=== PATIENT | female | born 1960 | race Caucasian/White ===

== ENCOUNTER 2017-02-19 22:24 | Inpatient (IN) | payer BC, OTHER ==
[2017-02-19 23:20] LABS: Urine Bilirubin Negative (NEGATIVE); Urine Blood 50 /ul (NEGATIVE); Urine Ketone 15 mg/dL (NEGATIVE); Urine Nitrite Negative (NEGATIVE); Urine Protein Negative (NEGATIVE); Urine Urobilinogen Normal (NORMAL); Urine pH 6.5 pH (5.0-7.0)
[2017-02-19 23:27] LABS: Urine Appearance Clear; Urine Bacteria 1+; Urine Color Yellow; Urine RBC 0-5 /hpf (0-5); Urine WBC 0-5 /hpf (0-5)
--- NOTE | 2017-02-20 01:29 | ERNOTE ---
Abdominal HPI - General Chief Complaint: Abdominal Pain Time Seen by Provider: 02/20/17 01:15 Source: patient, family Exam Limitations: clinical condition - Immun/Allergies/Home Medications Immunizatons: IMMUNIZATION HX Immunizations Up to Date Yes History of Influenza Vaccine No Hx Pneumococcal Vaccination Yes Allergies/Adverse Reactions: Allergies No Known Allergies Allergy (Unverified 02/19/17 22:39) Home Medications: HOME MEDICATIONS Amitriptyline HCl [Elavil] 10 mg PO HS 02/19/17 [Last Taken Unknown] Citalopram Hydrobromide [Celexa] 20 mg PO DAILY 02/19/17 [Last Taken Unknown] HYDROcodone/ACETAMINOPHEN [Hydrocodon-Acetaminophen 5-325] 1 each PO Q4H PRN [Last Taken Unknown] Levothyroxine Sodium [Synthroid] 100 mcg PO TUTH 02/19/17 [Last Taken Unknown] Levothyroxine Sodium [Synthroid] 112 mcg PO SUMOWEFRSA 02/19/17 [Last Taken Unknown] Lisinopril [Zestril] 10 mg PO DAILY 02/19/17 [Last Taken Unknown] Meloxicam [Mobic] 15 mg PO DAILY 02/19/17 [Last Taken Unknown] Zolpidem Tartrate 10 mg PO HS 02/19/17 [Last Taken Unknown] tiZANidine HCL [Tizanidine HCl] 4 mg PO BID 02/19/17 [Last Taken Unknown] - History of Present Illness Narrative: Pt sleeping upon my entrance to the room. Awakens to mild tactile and verbal stimuli. Pt keeps her eyes closed when talking to me during the exam. Timing: intermittent Quality: moderate, severe, aching Activities at Onset: none Modifying Factors - (Improves): Present: analgesics Modifying Factors - (Worsens): Present: movement Associated Symptoms: Present: diaphoresis, diarrhea-gross blood, fever/chills Prior Treatment: Present: other - Had similar episode [address] and colonoscopy were eventually done but not until weeks to months later. No diagnosis was given Review of Systems - Review of Systems Constitutional: Present: See HPI, fever, chills, diaphoresis EYE: Present: no symptoms reported ENT: Present: no symptoms reported Respiratory: Absent: shortness of breath Cardiology: Absent: chest pain Gastrointestinal/Abdominal: Present: See HPI, nausea, vomiting, diarrhea Genitourinary: Absent: frequency, pain Musculoskeletal: Present: back pain - chronic, muscle pain Skin: Present: no symptoms reported Neurological: Present: no symptoms reported Endocrine: Present: no symptoms reported Hematologic/Lymphatic: Present: no symptoms reported Psych: Present: no symptoms reported - Patient's Past Medical History Patient History - Medical: Depression, Hypothyroidism, Migraines Patient History - Cardiac/Respiratory: Asthma Patient History - Cancer: No Hx of Cancer Patient History - Surgical Procedures: Tubal Ligation, Other Patient History - Other: None - Social History Living Situations: home Abuse History: No History of abuse Psych History: Hx of Depression Smoking Status: Former smoker Have you smoked in the past 12 months: No Do you dip or chew tobacco: No Alcohol Use: none Drug Use: none - Immunizations Immunizations Up to Date: Yes Hx Pneumococcal Vaccination: Yes History of Influenza Vaccine: No Physical Exam - Physical Exam General Appearance: Present: wd/wn, mild distress, lethargic Respiratory: Present: no respiratory distress, no accessory muscle use, lungs clear Cardiovascular/Chest: Present: regular rate, rhythm, no murmur Gastrointestinal/Abdominal: Present: tenderness - epigastric and RLQ , abnormal bowel sounds - hypoactive. Absent: guarding, rebound Extremity Exam: Present: normal inspection, no edema Skin Exam: Present: normal color, warm/dry ED Progress - Results and Orders Patient's Lab Results:: I have reviewed the patient's lab results. Results and Orders: Laboratory Tests 02/19/17 02/20/17 02/20/17 23:10 01:24 01:24 WBC 17.2 H Hgb 12.9 Hct 37.5 Neutrophils % 83.4 H ESR Sodium 139 Potassium 4.2 Chloride 102 Carbon Dioxide 27.2 Anion Gap 14.0 H BUN 28 H Creatinine 1.05 Est GFR (Non-Af Amer) 58 L BUN/Creatinine Ratio 26.7 H Random Glucose 129 H Calcium 9.5 Total Bilirubin 0.5 AST 35 ALT 51 Alkaline Phosphatase 56 C-Reactive Prot, Quant 6.9 H Total Protein 7.0 Albumin 3.7 Amylase 67 Lipase 82 Urine Color Yellow Urine Appearance Clear Urine pH 6.5 Ur Specific [place] 1.010 Urine Protein Negative Urine Glucose (UA) Negative Urine Ketones 15 Urine Blood 50 H Urine Nitrate Negative Urine Bilirubin Negative Urine Urobilinogen Normal Ur Leukocyte Esterase 75 H Urine RBC 0-5 Urine WBC 0-5 Ur Epithelial Cells 0-5 Urine Bacteria 1+ H Urine Culture Comments Culture to follow 02/20/17 01:57 WBC Hgb Hct Neutrophils % ESR 14 Sodium Potassium Chloride Carbon Dioxide Anion Gap BUN Creatinine Est GFR (Non-Af Amer) BUN/Creatinine Ratio Random Glucose Calcium Total Bilirubin AST ALT Alkaline Phosphatase C-Reactive Prot, Quant Total Protein Albumin Amylase Lipase Urine Color Urine Appearance Urine pH Ur Specific [place] Urine Protein Urine Glucose (UA) Urine Ketones Urine Blood Urine Nitrate Urine Bilirubin Urine Urobilinogen Ur Leukocyte Esterase Urine RBC Urine WBC Ur Epithelial Cells Urine Bacteria Urine Culture Comments - Vital Signs Patient's Vital Signs:: I have reviewed the patient's vital signs. Vital Signs: Vital Signs 02/19/17 02/19/17 02/20/17 22:35 23:31 00:20 Temperature 38.8 C H Pulse Rate 89 90 98 Respiratory 20 18 18 Rate Blood Pressure 124/97 150/74 O2 Sat by Pulse 100 99 98 Oximetry 02/20/17 00:50 Temperature 38.4 C H Pulse Rate 92 Respiratory 18 Rate Blood Pressure 145/78 O2 Sat by Pulse 98 Oximetry - CT/Ultrasound CT/Ultrasound Narrative: Ct abd. pelvis with IV and oral contrast: focal wall thickening and surrounding inflammatory changes around the transverse and ascending colon. Consistent with colitis. consider endoscopic follow up to rule out neoplasm. No pneumoperitoneum or fluid collection to suggest perforation Otherwise normal to include appendix - Progress/Reassessment Chief Complaint: Abdominal Pain Progress:: Unchanged Progress Note-Subjective: 02/20/17 02:20 CBC results reviewed, WBC 17,000 discussed pain, IV and CT scan with patient. Orders written 02/20/17 05:[address] results with patient and recommended admission. Pt agrees with admission Spoke with Ally QUESADA hospitalist. She agrees with admit. Departure - Departure Clinical Impression: Colitis Disposition: [facility] Condition: Fair
[2017-02-20 01:39] LABS: Hematocrit 37.5 % (37.0-47.0); Hemoglobin 12.9 gm/dL (12.5-16.0); Mean Cell Volume 84.1 fl (78-100); Mean Corpuscular Hemoglobin 28.9 pg (27-31); Mean Corpuscular Hgb Conc 34.4 g/dl (32-36); Mean Platelet Volume 9.4 fl (6.0-9.5); Neutrophil # 14.3 K/mm3 (1.3-6.0); Neutrophil % 83.4 % (42-75.0); Platelet Count 239 K/mm3 (150-450); Red Blood Count 4.46 M/mm3 (4.2-5.4); White Blood Count 17.2 K/mm3 (4.0-10.5)
[2017-02-20] MEDS ORDERED: MORPHINE SULFATE 2 MG/ML DISP.SYRIN IV ONE ×2 (02:15→05:20)
[2017-02-20] MEDS ORDERED: ONDANSETRON HCL/PF 2 MG/ML VIAL IV ONE (02:15)
[2017-02-20] MEDS ORDERED: NORMAL SALINE 1,000 ML IV ONE ×3 (02:15→22:29)
[2017-02-20 02:17] LABS: Albumin * 3.7 gm/dl (3.4-5.0); BUN/Creatinine Ratio 26.7 (9.0-21.6); Bilirubin, Total 0.5 mg/dL (0.0-1.1); CRP 6.9 mg/dL (0.0-0.9); Ca. Corrected For Albumin 9.4 mg/dL (8.4-10.2); Calcium * 9.5 mg/dL (7.9-10.9); Carbon Dioxide 27.2 mmol/L (24-32.6); Potassium 4.2 mmol/L (3.4-4.6)
[2017-02-20] MEDS ORDERED: MORPHINE SULFATE 2 MG/ML DISP.SYRIN ONE ×2 (02:26→05:20)
[2017-02-20] MEDS ORDERED: ONDANSETRON HCL/PF 2 MG/ML VIAL ONE (02:26)
[2017-02-20] MEDS ORDERED: DIATRIZOATE MEGLU/DIATRIZO SOD 30 ML BTL PO ONE (02:48)
[2017-02-20] MEDS ORDERED: metroNIDAZOLE/SODIUM CHLORIDE 500 MG/100 ML BAG IV SCH ×2 (05:30→13:30)
--- NOTE | 2017-02-20 06:16 | HP ---
Chief Complaint - Chief Complaint Date of Service: 02/20/17 Time of Service: 06:06 Chief Complaint: " Abdominal Pain, Diarrhea, Nausea". Source of HPI- Pt; reliable, ER Provider report. History of Present Illness: Mrs. Joe is a 56-yr-old [place] pt of Dr. Bautista Johnston with a PMH of: Anemia, Depression, HTN, GERD, Hypothyroidism, Insomnia, Low Back Pain, &Raynaud's Syndrome. Pt states that yesterday morning at about 6am, she had a banana and shortly after that, she developed abdominal pain, and diarrhea that went on for about 2 hours. This was accompanied by headache and sweating. She took medication for her chronic back and neck pain and went to work. She reports that the abdominal pain and diarrhea continued during the day and got a lot worse in the evening. She finally chose to go to the ED at 10pm. She reports there were times when she 'noticed some blood in the stool.' She did not eat anything else for the rest of the day, but she had a few sips of liquids. She states that she had similar episode 10 yrs ago and was evaluated at the ED and asked to follow-up with a PCP. Her PCP obtained a CT of the abdomen and nothing acute was found. She also had a colonoscopy following that and it was normal. She states that ever since then, she had bouts of diarrhea and abdominal pain once or twice a month and it usually resolves on its own. She reports that her mother, brother and sister have been found to have Irritable Bowel Syndrome. At the ED, she was found to have WBC of 17,000 with a left shift and was febrile with a temp of 38.4. A CT of the abdomen showed inflammatory changes involving the transverse and ascending colon. - Patient's Past Medical History Patient History - Medical: Anemia, Chronic Pain, Depression, GERD, Hypothyroidism, Migraines Patient History - Cardiac/Respiratory: Asthma, Hypertension, Hyperlipidemia Patient History - Cancer: No Hx of Cancer Patient History - Surgical Procedures: Tubal Ligation, Other Patient History - Other: None - Family History Father Family History - Medical: Family History - Cardiac/Respiratory: CVA/Stroke Mother Family History - Medical: , Other - IBS - Social History Living Situations: home Abuse History: No History of abuse Psych History: Hx of Depression Smoking Status: Former smoker Have you smoked in the past 12 months: No Do you dip or chew tobacco: No Alcohol Use: none Drug Use: none - Immunizations Immunizations Up to Date: Yes Hx Pneumococcal Vaccination: Yes History of Influenza Vaccine: No Review Of Systems (GEN) - Review of Systems Generalized/Overall Review: Present: Malaise, Diaphoresis, Fatigue. Absent: Weakness, Chills, Fever EENTM: Absent: Eye Pain, Blurred Vision, Double Vision Respiratory: Absent: Cough, Shortness of Breath, Orthopnea Cardiac: Absent: Chest Pain, Edema, Palpitations Abdominal: Present: Nausea, Abdominal Pain, Diarrhea, Other - blood misex with stool. Absent: Vomiting, Hematemesis, Constipation, Melena Genitourinary: Absent: Burning, Itching, Frequency, Hesitancy Musculoskeletal: Absent: Joint Pain, Back Pain, Joint Swelling Neurological: Present: Headache, Depressed. Absent: Anxiety Skin: Absent: Dryness, Lesions, Lumps, Rash Endocrine: Absent: Intolerance to Cold, Intolerance to Heat, Increased Hunger Misc: All systems neg except as marked Immunizations: IMMUNIZATION HX Immunizations Up to Date Yes History of Influenza Vaccine No Hx Pneumococcal Vaccination Yes Allergies/Adverse Reactions: Allergies Allergy/AdvReac Type Severity Reaction Status Date / Time No Known Allergies Allergy Verified 02/20/17 07:02 Home Medications: HOME MEDICATIONS Amitriptyline HCl [Elavil] 10 mg PO HS 02/19/17 [Last Taken Unknown] Citalopram Hydrobromide [Celexa] 20 mg PO DAILY 02/19/17 [Last Taken Unknown] HYDROcodone/ACETAMINOPHEN [Hydrocodon-Acetaminophen 5-325] 1 each PO Q4H PRN [Last Taken 02/20/17 01:00] Levothyroxine Sodium [Synthroid] 100 mcg PO TUTH 02/19/17 [Last Taken Unknown] Levothyroxine Sodium [Synthroid] 112 mcg PO SUMOWEFRSA 02/19/17 [Last Taken Unknown] Lisinopril [Zestril] 10 mg PO DAILY 02/19/17 [Last Taken Unknown] Meloxicam [Mobic] 15 mg PO DAILY 02/19/17 [Last Taken Unknown] Zolpidem Tartrate 10 mg PO HS 02/19/17 [Last Taken Unknown] tiZANidine HCL [Tizanidine HCl] 4 mg PO BID 02/19/17 [Last Taken Unknown] Albuterol Sulfate [Proventil Hfa] 2 inh IH Q4H PRN 02/20/17 [Last Taken Unknown] Exam - Exam Vital Signs: Vital Signs - Last Taken Temp 37.3 C 02/20/17 05:40 Pulse 89 02/20/17 06:05 Resp 16 02/20/17 06:05 BP 148/76 02/20/17 06:05 Pulse Ox 96 02/20/17 06:05 Constitutional: Present: Alert, Oriented x3, Cooperative, Mild distress ENT Exam: Present: normal ENT inspection, hearing grossly normal, dry mucous membranes. Absent: nasal drainage, pharyngeal erythema Eye Exam: bilateral eye: normal inspection, PERRL Neck: Present: full range of motion, supple, normal inspection Back Exam: Present: normal inspection, no CVA tenderness Respiratory: Present: lungs clear, normal breath sounds, No wheezing Cardiovascular/Chest: Present: normal peripheral pulses, regular rate, rhythm, no chest tenderness, no edema, no murmur Abdomen: Present: Normal bowel sounds, tender - LLQ, guarding /Rectal: Present: Exam deferred Extremity: Present: normal range of motion, normal inspection, no pedal edema Skin Exam: Present: warm/dry, no cyanosis Lymphatic: Present: no adenopathy Neurologic: Present: no motor/sensory deficits, alert, normal mood/affect, oriented x 3 Appearance: Present: appropriate appearance, appropriate insight Eye contact: Present: cooperative, good eye contact, normal speech Thoughts: Present: normal thought pattern, no apparent hallucination Diagnostic Studies: Laboratory Results WBC 17.2 K/mm3 (4.0-10.5) H 02/20/17 01:24 RBC 4.46 M/mm3 (4.2-5.4) 02/20/17 01:24 Hgb 12.9 gm/dL (12.5-16.0) 02/20/17 01:24 Hct 37.5 % (37.0-47.0) 02/20/17 01:24 MCV 84.1 fl (78-100) 02/20/17 01:24 MCH 28.9 pg (27-31) 02/20/17 01:24 MCHC 34.4 g/dl (32-36) 02/20/17 01:24 RDW 13.0 % (11.5-14.0) 02/20/17 01:24 Plt Count 239 K/mm3 (150-450) 02/20/17 01:24 MPV 9.4 fl (6.0-9.5) 02/20/17 01:24 Immature Gran % (Auto) 0.50 % (0.001-0.429) H 02/20/17 01:24 Immature Gran # (Auto) 0.09 K/mm3 (0.000-0.0310) H 02/20/17 01:24 Neutrophils % 83.4 % (42-75.0) H 02/20/17 01:24 Lymphocytes % 8.9 % (20-51) L 02/20/17 01:24 Monocytes % 6.9 % (0.0-9) 02/20/17 01:24 Eosinophils % 0.1 % (0.0-3.0) 02/20/17 01:24 Basophils % 0.2 % (0.0-1.0) 02/20/17 01:24 Nucleated RBC % 0.0 k/mm3 (0-1) 02/20/17 01:24 Neutrophils # 14.3 K/mm3 (1.3-6.0) H 02/20/17 01:24 Lymphocytes # 1.5 k/mm3 (1.5-3.5) 02/20/17 01:24 Monocytes # 1.2 k/mm3 (0.0-1.0) H 02/20/17 01:24 Eosinophils # 0.0 k/mm3 (0.0-0.7) 02/20/17 01:24 Absolute Basophils 0.0 k/mm3 (0.0-0.1) 02/20/17 01:24 ESR 14 mm/hr (0-15) 02/20/17 01:57 Sodium 139 mmol/L (132-142) 02/20/17 01:24 Plasma Sodium 139 mmol/L (130-142) 02/20/17 01:24 Potassium 4.2 mmol/L (3.4-4.6) 02/20/17 01:24 Chloride 102 mmol/L (97-106) 02/20/17 01:24 Carbon Dioxide 27.2 mmol/L (24-32.6) 02/20/17 01:24 Anion Gap 14.0 mmol/L (6.8-13.8) H 02/20/17 01:24 BUN 28 mg/dL (3-23) H 02/20/17 01:24 Creatinine 1.05 mg/dL (0.4-1.4) 02/20/17 01:24 Est GFR (Non-Af Amer) 58 mL/min (60-130) L 02/20/17 01:24 BUN/Creatinine Ratio 26.7 (9.0-21.6) H 02/20/17 01:24 Random Glucose 129 mg/dL (70-110) H 02/20/17 01:24 Calcium 9.5 mg/dL (7.9-10.9) 02/20/17 01:24 Calcium Adj for Albumin 9.4 mg/dL (8.4-10.2) 02/20/17 01:24 Total Bilirubin 0.5 mg/dL (0.0-1.1) 02/20/17 01:24 AST 35 U/L (0-48) 02/20/17 01:24 ALT 51 U/L (19-67) 02/20/17 01:24 Alkaline Phosphatase 56 U/L (50-170) 02/20/17 01:24 C-Reactive Prot, Quant 6.9 mg/dL (0.0-0.9) H 02/20/17 01:24 Total Protein 7.0 gm/dL (6.2-8.2) 02/20/17 01:24 Albumin 3.7 gm/dl (3.4-5.0) 02/20/17 01:24 Amylase 67 U/L (25-115) 02/20/17 01:24 Lipase 82 U/L (73-393) 02/20/17 01:24 Urine Color Yellow 02/19/17 23:10 Urine Appearance Clear 02/19/17 23:10 Urine pH 6.5 pH (5.0-7.0) 02/19/17 23:10 Ur Specific [place] 1.010 SP.GR. (1.005-1.010) 02/19/17 23:10 Urine Protein Negative mg/dL (NEGATIVE) 02/19/17 23:10 Urine Glucose (UA) Negative mg/dL (NEGATIVE) 02/19/17 23:10 Urine Ketones 15 mg/dL (NEGATIVE) 02/19/17 23:10 Urine Blood 50 /ul (NEGATIVE) H 02/19/17 23:10 Urine Nitrate Negative (NEGATIVE) 02/19/17 23:10 Urine Bilirubin Negative mg/dl (NEGATIVE) 02/19/17 23:10 Urine Urobilinogen Normal EU/dl (NORMAL) 02/19/17 23:10 Ur Leukocyte Esterase 75 /ul (NEGATIVE) H 02/19/17 23:10 Urine RBC 0-5 /hpf (0-5) 02/19/17 23:10 Urine WBC 0-5 /hpf (0-5) 02/19/17 23:10 Ur Epithelial Cells 0-5 /hpf (0-5) 02/19/17 23:10 Urine Bacteria 1+ (NONE) H 02/19/17 23:10 Urine Culture Comments Culture to follow 02/19/17 23:10 Assessment/Plan - Assessment/Plan (1) Colitis Assessment: Pt presented with Abdominal pain and diarrhea with blood. The wbc was elevated at 17,000 with a left shift and was also febrile with a temp of 38.4. The CT of the abdomen showed inflammatory changes of the transverse and ascending colon which requires further evaluation with an endoscopic procedure to determine the etiology and to obtain biobsy, and therefore will involve surgery. Dr. Kirk consulted and he will evaluate pt later for and plans for flexible sigmodoiscopy. Will provide supportive cares by keeping the pt NPO, Pain mgt, antiemetics, IVF Hydration, Cover with IV antibiotics- Levaquin and Flagyl. CBC in am. Problem: Acute (2) HTN (hypertension) Assessment: Stable- On Lisinopril. Problem: Chronic Qualifiers: Hypertension type: essential hypertension Qualified Code(s): I10 - Essential (primary) hypertension (3) GERD (gastroesophageal reflux disease) Problem: Chronic (4) Depression Assessment: Stable- On celexa and Amitriptyline. Problem: Chronic (5) Insomnia Problem: Chronic
[2017-02-20] MEDS ORDERED: LEVOFLOXACIN/D5W 500 MG/100 ML BAG IV SCH (07:00)
[2017-02-20] MEDS: ACETAMINOPHEN 325 MG TABLET PO PRN ×2 (07:05→21:17)
[2017-02-20] MEDS: NORMAL SALINE 1,000 ML IV PRN ×3 (07:26→23:32)
[2017-02-20] MEDS ORDERED: ALBUTEROL SULFATE 2.5 MG/3 ML VIAL.NEB IH PRN (07:36)
[2017-02-20] MEDS: CITALOPRAM HYDROBROMIDE 20 MG TABLET PO SCH (08:07)
[2017-02-20] MEDS: LISINOPRIL 10 MG TABLET PO SCH (08:07)
[2017-02-20] MEDS: LEVOTHYROXINE SODIUM 112 MCG TABLET PO SCH (08:07)
[2017-02-20] MEDS: tiZANidine HCL 4 MG TABLET PO SCH ×2 (08:08→21:05)
[2017-02-20] MEDS ORDERED: MELOXICAM 15 MG TABLET PO SCH (09:00)
[2017-02-20] MEDS: ENOXAPARIN SODIUM 40 MG/0.4 ML SYRG SC SCH (09:44)
--- OUTSIDE RECORDS SUMMARY | 2017-02-20 11:13 | XMS REPORT | Continuity of Care Document ---
:1960 Author Organization [facility] ([facility]) Address [address] [place] [address] Phone [phone] Care Team Providers Name Role Phone Unavailable Primary Care Provider Unavailable Source Comments This disclosure is being made pursuant to the Care Everywhere program, applicable federal and state laws, and may not contain all informaitonavailable regarding this patient.[facility] ([facility]) Active Allergies and Adverse Reactions Not on File Current Medications Not on file Active Problems Problem Noted Date Essential hypertension, benign 12/09/2001 Social History Tobacco Use Types Packs/Day Years Used Date Never Assessed Last Filed Vital Signs Vital Sign Reading Time Taken Blood Pressure 140/90 12/02/2003 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 Pulse 64 12/02/2003 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 Temperature 36.8 C (98.24 F) 12/02/2003 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 Respiratory Rate - - Height - - Weight 73.197 kg (161 lb 5.9 oz) 12/02/2003 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 Body Mass Index - - Oxygen Saturation - - Plan of Care Health Maintenance Due Date Last Done Comments HCV Screening 1960 Hepatitis B Vaccine (1 of 3 - Primary Series) 1960 Tdap Vaccine 1971 MMR Vaccine 1978 Td Vaccine 1978 Cervical Cancer Screening 1990 Mammogram 2000 Lipid Disorder Screening 12/09/2006 12/09/2001 Colonoscopy 2010 Influenza Vaccine: Seasonal (#1) 04/23/2016 Results from Last 3 Months Not on file
--- OUTSIDE RECORDS SUMMARY | 2017-02-20 11:13 | XMS REPORT | Continuity of Care Document ---
:1960 Author Organization [facility] [place] [address] Care Team Providers Name Role Phone Unavailable Primary Care Provider Unavailable Source Comments This disclosure is being made pursuant to the [employer] program and maynot contain all information available regarding this patient.[facility] Active Allergies and Adverse Reactions Not on File Current Medications Be aware that medications may not be up to date as of this document. Alwaysverify current medications with the patient. Not on file Active Problems Not on file Social History Tobacco Use Types Packs/Day Years Used Date Never Assessed Plan of Care Health Maintenance Due Date Last Done Comments Retired-Pertussis Vaccine Adult 1979 Retired-Tetanus Vaccine Adult 1979 Pap Smear 1981 Mammogram 2000 Colonoscopy 2010 Well Adult Visit 2010 Retired-INFLUENZA VACCINE 05/24/2015 Results from Last 3 Months Not on file
--- OUTSIDE RECORDS SUMMARY | 2017-02-20 11:15 | XMS REPORT | Continuity of Care Document ---
:1960 Author Organization [facility] [place] [address] Care Team Providers Name Role Phone Unavailable Primary Care Provider Unavailable Source Comments This disclosure is being made pursuant to the [id number] program and maynot contain all information available regarding this patient.[facility] Active Allergies and Adverse Reactions Not on [...]
--- OUTSIDE RECORDS SUMMARY | 2017-02-20 11:16 | XMS REPORT | Continuity of Care Document ---
:1960 Author Organization [facility] ([facility]) Address [address] [place] [address] Phone [phone] Care Team Providers Name Role Phone Unavailable Primary Care Provider Unavailable Source Comments This disclosure is being made pursuant to the Care Everywhere program, applicable federal and state laws, and may not contain all informaitonavailable regarding this patient.[facility] ([facility]) Active Allergies and Adverse Reactions Not on File Current Medications Not on file Active Problems Problem Noted Date Essential hypertension, benign 12/09/2001 Social History Tobacco Use Types Packs/Day Years Used Date Never Assessed Last Filed Vital Signs Vital Sign Reading Time Taken Blood Pressure 140/90 12/02/2003 1:17 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
[2017-02-20] MEDS: HYDROmorphone HCL 1 MG/ML DISP.SYRIN IV PRN ×3 (14:07→19:20)
--- NOTE | 2017-02-20 18:24 | CONS ---
[facility] - General Date of Service: 02/20/17 Source: patient, RN notes reviewed, old records Exam Limitations: no limitations - History of Present Illness Initial Comments: She has had a similar episode of severe abdominal pain about 10 years ago. She was advised colon exam--this was done about 3 months later and was normal. She usually moves her bowels twice a week or so, however about 1-2 x's a month she will have Left sided abdominal pain and diarrhea for a few days. Timing/Duration: 24 hours Severity: severe Modifying Factors - (Worsens): Reports: eating Modifying Factors - (Improves): Reports: rest Associated Symptoms: other - loose stools with some blood Allergies/Adverse Reactions: Allergies No Known Allergies Allergy (Verified 02/20/17 07:02) Home Medications: Home Medications Medication Instructions Recorded Last Taken Amitriptyline HCl [Elavil] 10 mg PO HS 02/19/17 Unknown Citalopram Hydrobromide [Celexa] 20 mg PO QPM 02/19/17 Unknown HYDROcodone/ACETAMINOPHEN 1 each PO Q4H PRN 02/19/17 02/20/17 01:00 [Hydrocodon-Acetaminophen 5-325] Levothyroxine Sodium [Synthroid] 100 mcg PO TUTH 02/19/17 Unknown Levothyroxine Sodium [Synthroid] 112 mcg PO SUMOWEFRSA 02/19/17 Unknown Lisinopril [Zestril] 10 mg PO DAILY 02/19/17 Unknown Meloxicam [Mobic] 15 mg PO DAILY 02/19/17 Unknown Zolpidem Tartrate 5 mg PO HS 02/19/17 Unknown tiZANidine HCL [Tizanidine HCl] 4 mg PO BID 02/19/17 Unknown Albuterol Sulfate [Proventil Hfa] 2 inh IH Q4H PRN 02/20/17 Unknown - Patient's Past Medical History Patient History - Medical: Anemia, Chronic Pain, Depression, GERD, Hypothyroidism, Migraines Patient History - Cardiac/Respiratory: Asthma, Hypertension, Hyperlipidemia Patient History - Cancer: No Hx of Cancer Patient History - Surgical Procedures: Tubal Ligation, Other - colonoscopy about 10 years ago (normal) Patient History - Other: None LMP (females 10-50): Menopausal - Family History Father Family History - Medical: Family History - Cardiac/Respiratory: CVA/Stroke Mother Family History - Medical: , Other - IBS Family History - Cardiac/Respiratory: Hypertension Brother Family History - Cardiac/Respiratory: Hypertension Family History - Cancer: Other - Social History Living Situations: home Abuse History: No History of abuse Psych History: Hx of Depression Smoking Status: Former smoker Have you smoked in the past 12 months: No Do you dip or chew tobacco: No Alcohol Use: none Drug Use: none - Immunizations Immunizations Up to Date: Yes Hx Pneumococcal Vaccination: Yes History of Influenza Vaccine: No Procedures APPLICATION OF SPLINT (12/24/04) CLOSED ENDOSCOPIC BIOPSY OF LARGE INTESTINE (12/17/06) CLOSURE SKIN & SUBCUTANEOUS NEC (12/24/04) Medications - Medications Current Medications: Current Medications Acetaminophen (Tylenol) 650 mg PO Q6H PRN PRN Reason: Mild pain Stop: 03/22/17 07:00 Last Admin: 02/20/17 07:05 Dose: 650 mg Citalopram Hydrobromide (Celexa) 20 mg PO DAILY OSCAR Stop: 03/22/17 09:01 Last Admin: 02/20/17 08:07 Dose: 20 mg Enoxaparin Sodium (Lovenox) 40 mg SC Q24H OSCAR Stop: 03/22/17 08:46 Last Admin: 02/20/17 09:44 Dose: 40 mg Hydromorphone HCl (Dilaudid) 0.5 mg IV Q1H PRN PRN Reason: Moderate Pain Stop: 03/22/17 07:17 Last Admin: 02/20/17 15:56 Dose: 0.5 mg Sodium Chloride (Sodium Chloride 0.9%) 1,000 mls @ 125 mls/hr IV .Q8H PRN PRN Reason: HYDRATION Stop: 03/22/17 07:17 Last Admin: 02/20/17 16:57 Dose: 125 mls/hr Levothyroxine Sodium (Synthroid) 112 mcg PO [id number]@0700 OSCAR Stop: 03/22/17 07:31 Last Admin: 02/20/17 08:07 Dose: 112 mcg Lisinopril (Zestril) 10 mg PO DAILY OSCAR Stop: 03/22/17 09:01 Last Admin: 02/20/17 08:07 Dose: 10 mg Meloxicam (Mobic) 15 mg PO DAILY OSCAR Stop: 03/22/17 09:01 Last Admin: 02/20/17 08:07 Dose: 15 mg Tizanidine HCl (Zanaflex) 4 mg PO BID OSCAR Stop: 03/22/17 09:01 Last Admin: 02/20/17 08:08 Dose: 4 mg Review of Systems - Review of Systems Generalized/Overall Review: Present: Malaise. Absent: Chills, Fever EENTM: Present: No Symptoms Reported Respiratory: Present: No Symptoms Reported Cardiac: Present: No Symptoms Reported Abdominal: Present: Abdominal Pain, Diarrhea Genitourinary: Present: No Symptoms Reported Musculoskeletal: Present: No Symptoms Reported Neurological: Present: No Symptoms Reported Skin: Present: No Symptoms Reported Physical Examination - Exam Vital Signs: Vital Signs - Last Taken Temp 37.4 C 02/20/17 17:19 Pulse 88 02/20/17 17:19 Resp 14 02/20/17 17:19 BP 127/73 02/20/17 17:19 Pulse Ox 96 02/20/17 17:19 O2 Oxygen Delivery Method Room Air Constitutional: Present: Alert, Oriented x3, Cooperative, Mild distress ENT Exam: Present: normal ENT inspection Eye Exam: bilateral eye: normal inspection Neck: Present: full range of motion, normal inspection Respiratory: Present: no respiratory distress Cardiovascular/Chest: Present: regular rate, rhythm Abdomen: Present: other - Very tender LUQ, no percussion tenderness /Rectal: Present: Exam deferred Extremity: Present: normal range of motion Skin Exam: Present: normal color Neurologic: Present: belt brander II-XII nml as tested, no motor/sensory deficits Appearance: Present: appropriate appearance, appropriate insight Eye contact: Present: cooperative, good eye contact, normal speech Thoughts: Present: normal thought pattern, no apparent hallucination - Assessments/Findings (1) Colitis Diagnosis(s): The abdomen/pelvis CT shows thickened colon from mid transverse to distal descending colon--there is a segment of thin walled bowel in the sigmoid The distribution suggests ischemic etiol. The normal distal colon is not compatible with ulcerative colitis, however Crohn's disease is a possibility. RECOMMEND: Will keep NPO and perform sigmoidoscopy later today. Pamphlet on the procedure reviewed with and given to her. Questions answered and informed consent obtained. Problem: Acute
--- NOTE | 2017-02-20 18:43 | OR ---
Operative Report - Dictated Report Narrative: OPERATIVE REPORT DATE OF OPERATION: 02/20/2017 PREOPERATIVE DIAGNOSIS: Colitis POSTOPERATIVE DIAGNOSIS: Colitis starting at 30 cm OPERATION: Flexible sigmoidoscopy with biopsies SURGEON: Olesya Kirk MD ANESTHESIA: AGUSTIN Reyes CRNA INDICATIONS FOR PROCEDURE: The patient is a 56-year-old female who presented to the emergency room with a 12 hour history of left-sided abdominal pain and diarrhea with some blood. She has had a previous severe bout of this nature 10 years ago. A colonoscopy 3 months later was normal. Since that time 1 or 2 times a month she has left-sided abdominal pain and diarrhea. CT scan shows colon wall thickening from the mid transverse colon to the distal descending colon. FINDINGS: Normal-appearing rectum and sigmoid colon to 30 cm. Abrupt transition to ischemic appearing colon at 30 cm (pathology pending) NARRATIVE OF PROCEDURE: The patient was identified preoperatively and prior to the administration of anesthetic a multidisciplinary timeout was observed. With the patient in the left lateral position and after the administration of intravenous sedation the perineum was inspected. There was no evidence of pilonidal disease or skin breakdown. The external appearance of the anus was normal. Sphincter tone was good. The flexible fiberoptic colonoscope was inserted into the rectum which was insufflated minimally. The rectal mucosa and submucosal vascular pattern appeared normal. There was only a small amount of residual liquid stool. The scope was advanced proximally through a normal- appearing distal sigmoid colon. At approximately 30 cm abrupt transition was encountered to ischemic appearing colon with eschar along one wall. Biopsies were obtained at this level. The biopsy sites were seen to be hemostatic. The scope was not advanced proximally due to the risk of perforation. The scope was slowly withdrawn confirming the normal appearance of the sigmoid colon and rectum. Insufflated air was removed and as much as possible. The scope was withdrawn from the patient and the procedure terminated. The patient tolerated the anesthetic and procedure well without complication she was transferred back to the floor awake and in stable condition. RECOMMEND: The patient does take meloxicam which is known to cause colitis this medication will be discontinued. Would continue the patient on aerobic and anaerobic antibiotic coverage with only clear liquids by mouth. Further management pending pathology and clinical response. Reviewed and electronically signed
[2017-02-20] MEDS: metroNIDAZOLE/SODIUM CHLORIDE 500 MG/100 ML BAG IV SCH (21:05)
[2017-02-20] MEDS: AMITRIPTYLINE HCL 10 MG TABLET PO SCH (21:05)
[2017-02-20] MEDS: ZOLPIDEM TARTRATE 10 MG TABLET PO SCH (21:05)
[2017-02-20 22:57] LABS: Hemoglobin 9.6 gm/dL (12.5-16.0); Mean Cell Volume 86.6 fl (78-100); Mean Corpuscular Hemoglobin 28.7 pg (27-31); Mean Corpuscular Hgb Conc 33.1 g/dl (32-36); Neutrophil # 9.3 K/mm3 (1.3-6.0); Neutrophil % 78.2 % (42-75.0); Platelet Count 163 K/mm3 (150-450); Red Blood Count 3.35 M/mm3 (4.2-5.4); Red Cell Distribution Width 13.5 % (11.5-14.0); White Blood Count 11.9 K/mm3 (4.0-10.5)
[2017-02-21] MEDS: NORMAL SALINE 1,000 ML IV PRN ×5 (00:33→14:18)
[2017-02-21] MEDS ORDERED: NORMAL SALINE 1,000 ML IV PRN (00:35)
[2017-02-21] MEDS: metroNIDAZOLE/SODIUM CHLORIDE 500 MG/100 ML BAG IV SCH ×3 (05:19→21:31)
[2017-02-21] MEDS: ACETAMINOPHEN 325 MG TABLET PO PRN (05:25)
[2017-02-21 05:34] LABS: Hematocrit 32.7 % (37.0-47.0); Hemoglobin 10.5 gm/dL (12.5-16.0); Mean Cell Volume 89.6 fl (78-100); Mean Corpuscular Hemoglobin 28.8 pg (27-31); Mean Corpuscular Hgb Conc 32.1 g/dl (32-36); Mean Platelet Volume 9.7 fl (6.0-9.5); Platelet Count 175 K/mm3 (150-450); Red Blood Count 3.65 M/mm3 (4.2-5.4); Red Cell Distribution Width 13.6 % (11.5-14.0); White Blood Count 12.8 K/mm3 (4.0-10.5)
[2017-02-21 05:41] LABS: Anion Gap 12.5 mmol/L (6.8-13.8); BUN/Creatinine Ratio 17.3 (9.0-21.6); Calcium * 7.7 mg/dL (7.9-10.9); Carbon Dioxide 23.2 mmol/L (24-32.6); Estimated Creat Clear 55.4; Potassium 3.7 mmol/L (3.4-4.6)
[2017-02-21 05:46] LABS: Total Cells Counted 100
[2017-02-21 06:29] LABS: Band 16 % (0-2.0); Lymphocyte 10 % (20-51); Monocyte 2 % (0-9); Neutrophil 72 % (42-75); Neutrophil # 9.2 K/mm3 (1.3-6.0)
[2017-02-21 06:30] LABS: Platelet Estimate Normal (NORMAL)
--- NOTE | 2017-02-21 06:31 | PN ---
Subjective - Date and Time Seen Date: 02/21/17 Time: 06:26 Subjective Narrative: Pt examined this am. She is in no distress but appears fatigued. Complains of abdominal tenderness and not being able to sleep well. Became hypotensive overnight and required 3 L IVF and BP improved to 120/80s. No other issues according to nursing. Objective - Vitals Vitals: Last Vital Signs Temp 37.3 C 02/21/17 01:33 Pulse 89 02/21/17 02:47 Resp 22 H 02/21/17 01:33 BP 121/64 02/21/17 02:47 Pulse Ox 92 02/20/17 23:41 - Abnormal Lab Findings Abnormal Lab Findings: Abnormal Lab Results 02/20/17 02/21/17 02/21/17 Range/Units 22:53 05:29 05:29 WBC 11.9 H D 12.8 H (4.0-10.5) K/mm3 RBC 3.35 L 3.65 L (4.2-5.4) M/mm3 Hgb 9.6 L 10.5 L (12.5-16.0) gm/dL Hct 29.0 L 32.7 L (37.0-47.0) % MPV 9.7 H (6.0-9.5) fl Immature Gran % (Auto) 0.60 H (0.001-0.429) % Immature Gran # (Auto) 0.07 H (0.000-0.0310) K/mm3 Neutrophils % 78.2 H (42-75.0) % Lymphocytes % 11.4 L (20-51) % Monocytes % 9.2 H (0.0-9) % Neutrophils # 9.3 H (1.3-6.0) K/mm3 Lymphocytes # 1.4 L (1.5-3.5) k/mm3 Monocytes # 1.1 H (0.0-1.0) k/mm3 Chloride 110 H (97-106) mmol/L Carbon Dioxide 23.2 L (24-32.6) mmol/L Calcium 7.7 L (7.9-10.9) mg/dL - Exam Constitutional: Present: Alert, Oriented x3, Cooperative, No distress ENT Exam: Present: normal ENT inspection, hearing grossly normal, dry mucous membranes Neck: Present: non-tender, full range of motion, supple Breasts: Present: Exam deferred Respiratory: Present: lungs clear, no accessory muscle use Cardiovascular/Chest: Present: normal peripheral pulses, regular rate, rhythm, no chest tenderness, no murmur Abdomen: Present: tender, guarding, high pitched bowel sounds /Rectal: Present: Exam deferred Extremity: Present: non-tender, normal inspection, no pedal edema, no calf tenderness Skin Exam: Present: warm/dry, no cyanosis Lymphatic: Present: no adenopathy Neurologic: Present: no motor/sensory deficits, alert, normal mood/affect, oriented x 3 Appearance: Present: appropriate appearance, appropriate insight Eye contact: Present: cooperative, good eye contact, normal speech Thoughts: Present: normal thought pattern, no apparent hallucination Assessment/Plan - Problems/Diagnosis (1) Colitis Problem: Acute Narrative: On Admission, A CT of the abdomen showed inflammatory changes involving the transverse and ascending colon. Surgery consulted. Pt underwent Flex. Sigmodoiscopy with biobsy on on 02/20 Which showed ischemic colon at 30cm. The patient does was taking meloxicam which is known to cause colitis therefore the medication was discontinued. Will continue with Levaquin & Flagyl to provide aerobic and anaerobic antibiotic coverage. Further management will depend on pathology findings and clinical response. Continue with clear liquids. Surgery following pt. (2) HTN (hypertension) Problem: Chronic Qualifiers: Hypertension type: essential hypertension Qualified Code(s): I10 - Essential (primary) hypertension (3) GERD (gastroesophageal reflux disease) Problem: Chronic (4) Depression Problem: Chronic (5) Insomnia Problem: Chronic
[2017-02-21 06:32] LABS: Dohle Bodies Trace; RBC Morphology Normal (NORMAL); Toxic Granulation 1+
[2017-02-21] MEDS ORDERED: LEVOTHYROXINE SODIUM 100 MCG TABLET PO SCH (07:00)
[2017-02-21] MEDS: tiZANidine HCL 4 MG TABLET PO SCH (08:52)
[2017-02-21] MEDS: ENOXAPARIN SODIUM 40 MG/0.4 ML SYRG SC SCH (08:52)
[2017-02-21] MEDS: LISINOPRIL 10 MG TABLET PO SCH (08:52)
[2017-02-21] MEDS: CITALOPRAM HYDROBROMIDE 20 MG TABLET PO SCH (08:52)
[2017-02-21] MEDS ORDERED: LEVOFLOXACIN/D5W 750 MG/150 ML BAG IV SCH (09:00)
[2017-02-21] MEDS: HYDROcodone/ACETAMINOPHEN 1 EACH TABLET PO PRN ×3 (13:37→22:30)
[2017-02-21] MEDS: ZOLPIDEM TARTRATE 10 MG TABLET PO SCH (21:30)
[2017-02-21] MEDS: AMITRIPTYLINE HCL 10 MG TABLET PO SCH (21:31)
[2017-02-22] MEDS: NORMAL SALINE 1,000 ML IV PRN (00:34)
[2017-02-22] MEDS: metroNIDAZOLE/SODIUM CHLORIDE 500 MG/100 ML BAG IV SCH (05:28)
[2017-02-22] MEDS: ONDANSETRON HCL/PF 2 MG/ML VIAL IV PRN (05:31)
[2017-02-22 05:37] LABS: Hemoglobin 10.1 gm/dL (12.5-16.0); Mean Cell Volume 86.2 fl (78-100); Mean Corpuscular Hgb Conc 33.7 g/dl (32-36); Mean Platelet Volume 9.4 fl (6.0-9.5); Platelet Count 186 K/mm3 (150-450); Red Blood Count 3.48 M/mm3 (4.2-5.4); Red Cell Distribution Width 13.3 % (11.5-14.0); White Blood Count 10.5 K/mm3 (4.0-10.5)
[2017-02-22 05:48] LABS: Total Cells Counted 100
[2017-02-22 05:57] LABS: Anion Gap 17.6 mmol/L (6.8-13.8); BUN/Creatinine Ratio 14.1 (9.0-21.6); Calcium * 7.9 mg/dL (7.9-10.9); Carbon Dioxide 19.5 mmol/L (24-32.6); Estimated Creat Clear 76.4; Potassium 3.1 mmol/L (3.4-4.6)
[2017-02-22 06:01] LABS: Band 1 % (0-2.0); Eosinophil 3 % (0-3); Immature Granulocyte 1 (0-1); Lymphocyte 12 % (20-51); Monocyte 4 % (0-9); Neutrophil 79 % (42-75); Neutrophil # 8.3 K/mm3 (1.3-6.0); Platelet Estimate Normal (NORMAL); RBC Morphology Normal (NORMAL)
--- NOTE | 2017-02-22 06:15 | PN ---
Subjective - Date and Time Seen Date: 02/22/17 Time: 06:11 Subjective Narrative: Ms. Joe examined this am. Reports feeling nauseated this am. Did not vomit but regurgitated bile. Has not been ambulating much, but wants to increase activity today. Denies having abdominal tenderness. Feels ready to advance diet. No other issues according to nursing. Objective - Vitals Vitals: Last Vital Signs Temp 37.0 C 02/22/17 02:50 Pulse 88 02/22/17 02:50 Resp 18 02/22/17 02:50 BP 136/63 02/22/17 02:50 Pulse Ox 98 02/22/17 02:50 - Abnormal Lab Findings Abnormal Lab Findings: Abnormal Lab Results 02/21/17 02/22/17 Range/Units 05:29 05:33 RBC 3.48 L (4.2-5.4) M/mm3 Hgb 10.1 L (12.5-16.0) gm/dL Hct 30.0 L (37.0-47.0) % Neutrophils % (Manual) 79 H (42-75) % Band Neuts % (Manual) 16 H (0-2.0) % Lymphocytes % (Manual) 10 L 12 L (20-51) % Neutrophils # (Manual) 9.2 H 8.3 H (1.3-6.0) K/mm3 Lymphocytes # (Manual) 1.3 L 1.3 L (1.5-3.5) k/mm3 - Exam Constitutional: Present: Alert, Oriented x3, Cooperative, No distress ENT Exam: Present: normal ENT inspection, hearing grossly normal, dry mucous membranes Breasts: Present: Exam deferred Respiratory: Present: normal breath sounds, No wheezing Cardiovascular/Chest: Present: normal peripheral pulses, regular rate, rhythm, no edema, no murmur Abdomen: Present: Normal bowel sounds, soft, nontender /Rectal: Present: Exam deferred Extremity: Present: normal range of motion, non-tender, normal inspection Skin Exam: Present: warm/dry, no cyanosis Neurologic: Present: no motor/sensory deficits, alert, normal mood/affect, oriented x 3 Appearance: Present: appropriate appearance, appropriate insight Eye contact: Present: cooperative, good eye contact, normal speech Thoughts: Present: normal thought pattern, no apparent hallucination Assessment/Plan - Problems/Diagnosis (1) Colitis Problem: Acute Narrative: On Admission, A CT of the abdomen showed inflammatory changes involving the transverse and ascending colon. Surgery consulted. Pt underwent Flex. Sigmodoiscopy with biobsy on on 02/20 Which showed ischemic colon at 30cm. WBC Trending down 17.2--->11.9--->12.8--->10.5. The patient was taking Meloxicam which is known to cause colitis therefore the medication was discontinued. Will continue with Levaquin & Flagyl to provide aerobic and anaerobic antibiotic coverage. Further management will depend on pathology findings from biobsy and clinical response. Was on clear liquids. Will advance to full liquid diet today Need to increased ambulation activity. Surgery following pt. (2) HTN (hypertension) Problem: Chronic Qualifiers: Hypertension type: essential hypertension Qualified Code(s): I10 - Essential (primary) hypertension Narrative: Became hypotenstive on 02/20 and required IVF boluses. Hypotension was likely precipitated by dilaudid and Zanaflex. Both meds dc'd. Continue with Lisinopril. (3) Depression Problem: Chronic (4) Right shoulder pain Problem: Acute Narrative: Was on Hydrocodone, Zanaflex and Mobic for RT Shoulder pain and neck pain. Mobic discontinued during this admission due its link to colitis. Consider starting her on GaBapentin or cyclobezaprine in addition at discharge. (5) Insomnia Problem: Chronic (6) GERD (gastroesophageal reflux disease) Problem: Chronic
[2017-02-22] MEDS: LEVOTHYROXINE SODIUM 112 MCG TABLET PO SCH (07:16)
[2017-02-22] MEDS: CITALOPRAM HYDROBROMIDE 20 MG TABLET PO SCH (09:24)
[2017-02-22] MEDS: POTASSIUM CHLORIDE 20 MEQ TABLET.SA PO SCH ×2 (09:24→16:51)
[2017-02-22] MEDS: 0.5 NORMAL SALINE 1,000 ML IV PRN ×2 (09:24→22:46)
[2017-02-22] MEDS: ENOXAPARIN SODIUM 40 MG/0.4 ML SYRG SC SCH (09:24)
[2017-02-22] MEDS: LISINOPRIL 10 MG TABLET PO SCH (09:25)
[2017-02-22] MEDS: HYDROcodone/ACETAMINOPHEN 1 EACH TABLET PO PRN ×3 (09:31→22:48)
[2017-02-22] MEDS ORDERED: LEVOFLOXACIN 750 MG TABLET PO SCH (11:00)
[2017-02-22] MEDS: metroNIDAZOLE 500 MG TABLET PO SCH ×2 (14:47→22:45)
[2017-02-22] MEDS: AMITRIPTYLINE HCL 10 MG TABLET PO SCH (20:26)
[2017-02-22] MEDS: ZOLPIDEM TARTRATE 10 MG TABLET PO SCH (20:26)
--- NOTE | 2017-02-23 05:15 | DS ---
(1) Ischemic colitis Problem: Acute (2) Colitis Problem: Acute (3) HTN (hypertension) Problem: Chronic Qualifiers: Hypertension type: essential hypertension Qualified Code(s): I10 - Essential (primary) hypertension (4) Depression Problem: Chronic (5) Right shoulder pain Problem: Acute (6) Insomnia Problem: Chronic (7) GERD (gastroesophageal reflux disease) Problem: Chronic Description of Stay: ADMISSION HPI. Mrs. Joe is a 56-yr-old [place] pt of Dr. Bautista Johnston with a PMH of: Anemia, Depression, HTN, GERD, Hypothyroidism, Insomnia, Low Back Pain, &Raynaud's Syndrome. Pt states that yesterday morning at about 6am, she had a banana and shortly after that, she developed abdominal pain, and diarrhea that went on for about 2 hours. This was accompanied by headache and sweating. She took medication for her chronic back and neck pain and went to work. She reports that the abdominal pain and diarrhea continued during the day and got a lot worse in the evening. She finally chose to go to the ED at 10pm. She reports there were times when she 'noticed some blood in the stool.' She did not eat anything else for the rest of the day, but she had a few sips of liquids. She states that she had similar episode 10 yrs ago and was evaluated at the ED and asked to follow-up with a PCP. Her PCP obtained a CT of the abdomen and nothing acute was found. She also had a colonoscopy following that and it was normal. She states that ever since then, she had bouts of diarrhea and abdominal pain once or twice a month and it usually resolves on its own. She reports that her mother, brother and sister have been found to have Irritable Bowel Syndrome. At the ED, she was found to have WBC of 17,000 with a left shift and was febrile with a temp of 38.4. A CT of the abdomen showed inflammatory changes involving the transverse and ascending colon. HOSPITAL COURSE PROBLEMS. 1.)ISCHEMIC COLITIS. Pt presented with Abdominal pain and diarrhea with blood. The WBC was elevated at 17,000 with a left shift and was also febrile with a temp of 38.4. The CT of the abdomen showed inflammatory changes of the transverse and ascending colon which required further evaluation with an endoscopic procedure to determine the etiology and to obtain biobsy, and therefore surgery was involved in pt's case. Dr. Kirk consulted and he performed a flexible sigmodoiscopy with biopsies on . The findings of the procedure: Normal-appearing rectum and sigmoid colon to 30 cm, & Abrupt transition to ischemic appearing colon at 30 cm. The cause of Ischemic bowel was likely Meloxicam that pt was taking for RT shoulder pain and neck pain. This medication was discontinued and pt was advised to stop taking the medication. Pt received supportive cares by bowel rest, Pain mgt, antiemetics, IVF Hydration & IV antibiotic coverage for Aerobes and Anaerobes bacteria with Levaquin and Flagyl. Over the hospital stay, she continued to make progress without any peritoneal signs. Her abdominal pain and diarrhea subsided, she tolerate the advanced diet to BRAT. Her WBC was down to 8.2 on day of discharge with stable V.S. She will continue with Levaquin 750mg daily & Flagyl 800mg t.i.d orally x 5 days. Will clear with surgery in am for discharge. Pt is in a stable condition to be send home and she was advised to follow-up with her PCP next week. 2.) HYPOTENSION. Became hypotenstive on 02/20 and required 3 L IVF boluses. Hypotension was likely precipitated by both the Dilaudid and Zanaflex. Both meds dc'd and Blood pressure improved to NR. Procedures Performed: see notes below List Procedures: Sigmodoiscopy with biobsy. Discharge Disposition: Home self care Disposition: Home self-care Condition: Good Discharge Activity: Activity as tolerated Discharge Diet: Other - Advance diet as tolerated. Referrals: Bautista Johnston MD [Primary Care Provider] - Additional Patient Instructions (free text): Follow-up with Dr. Johnston next week. Prescriptions (Any new or edited meds): Levofloxacin [Levaquin] 750 mg PO DAILY@1100 #5 tablet metroNIDAZOLE [Flagyl] 500 mg PO Q8H #15 tablet Complete Home Medications List: Complete Home Medication List: Amitriptyline HCl [Elavil] 10 mg PO HS 02/19/17 Citalopram Hydrobromide [Celexa] 20 mg PO QPM 02/19/17 HYDROcodone/ACETAMINOPHEN [Hydrocodon-Acetaminophen 5-325] 1 each PO Q4H PRN Levothyroxine Sodium [Synthroid] 100 mcg PO TUTH 02/19/17 Levothyroxine Sodium [Synthroid] 112 mcg PO SUMOWEFRSA 02/19/17 Lisinopril [Zestril] 10 mg PO DAILY 02/19/17 Zolpidem Tartrate 5 mg PO HS 02/19/17 tiZANidine HCL [Tizanidine HCl] 4 mg PO BID 02/19/17 Albuterol Sulfate [Proventil Hfa] 2 inh IH Q4H PRN 02/20/17 Levofloxacin [Levaquin] 750 mg PO DAILY@1100 #5 tablet 02/23/17 metroNIDAZOLE [Flagyl] 500 mg PO Q8H #15 tablet 02/23/17
[2017-02-23 05:42] LABS: Hemoglobin 10.5 gm/dL (12.5-16.0); Mean Cell Volume 84.5 fl (78-100); Mean Corpuscular Hemoglobin 28.6 pg (27-31); Mean Corpuscular Hgb Conc 33.9 g/dl (32-36); Mean Platelet Volume 9.7 fl (6.0-9.5); Platelet Count 241 K/mm3 (150-450); Red Blood Count 3.67 M/mm3 (4.2-5.4); Red Cell Distribution Width 13.3 % (11.5-14.0); White Blood Count 8.2 K/mm3 (4.0-10.5)
[2017-02-23 05:53] LABS: Anion Gap 13.4 mmol/L (6.8-13.8); BUN/Creatinine Ratio 8.1 (9.0-21.6); Calcium * 8.3 mg/dL (7.9-10.9); Estimated Creat Clear 73.3; Potassium 3.4 mmol/L (3.4-4.6)
[2017-02-23] MEDS: metroNIDAZOLE 500 MG TABLET PO SCH (06:19)
[2017-02-23] MEDS: ONDANSETRON HCL/PF 2 MG/ML VIAL IV PRN (06:30)
[2017-02-23] MEDS: LEVOTHYROXINE SODIUM 112 MCG TABLET PO SCH (07:14)
[2017-02-23] MEDS: CITALOPRAM HYDROBROMIDE 20 MG TABLET PO SCH (08:02)
[2017-02-23] MEDS: POTASSIUM CHLORIDE 20 MEQ TABLET.SA PO SCH (08:02)
[2017-02-23] MEDS: LISINOPRIL 10 MG TABLET PO SCH (08:02)
[2017-02-23] MEDS: ENOXAPARIN SODIUM 40 MG/0.4 ML SYRG SC SCH (08:03)
[2017-02-23] MEDS: HYDROcodone/ACETAMINOPHEN 1 EACH TABLET PO PRN (08:05)
[2017-02-23 09:37] VITALS: BP 148/82
== END 2017-02-23 10:17 | disposition home or self-care (01) | DRG 395 ==
LOC: ER 22:24 → MS 02-20 05:27
PROVIDERS: ADMIT Nurse Practitioner; ATTEND Internal Medicine
PROC: 0DBN8ZX Excision of Sigmoid Colon, Via Natural or Artificial Opening Endoscopic, Diagnostic (ICD-10-PCS; principal; 2017-02-20 14:15)
DX: K55.039 Acute (reversible) ischemia of large intestine, extent unspecified (principal); I95.89 Other hypotension; T42.8X5A Adverse effect of antiparkinsonism drugs and other central muscle-tone depressants, initial encounter; M25.511 Pain in right shoulder; I10 Essential (primary) hypertension; K21.9 Gastro-esophageal reflux disease without esophagitis; F51.04 Psychophysiologic insomnia
CPT/HCPCS: 36415; 45331; 74177; 80048; 80053; 81001; 82150; 83605; 83690; 85007; 85025; 85027; 85652; 86140; 87040; 87086; 88305; 96365; 96375; 99284; J2405